=== PATIENT | male | born 1995 | race Caucasian/White ===

== ENCOUNTER 2019-06-21 03:12 | Emergency (ER) | payer OTHER ==
[~2019-06-21] VITALS: Ht 177.8 cm; Wt 91.6 kg
[2019-06-21 03:12] VITALS: BP_SYST 141
--- NOTE | 2019-06-21 03:12 | NUR ---
Patient to ER bed 5 to gown for evaluation. Side rails up. Report given to MADISON Gee and MADISON Alcantar.
--- NOTE | 2019-06-21 03:13 | NUR ---
Pt brought in by [facility] ambulance. Pt awake, alert, oriented x4. Pt ambulates with steady gait. Patient states that he was being booked into alf while in custody of [facility] and was given milk to drink. Pt states that he drank the milk, then states he had an allergic reaction to the milk, and feels "bubbles" in his stomach, pt also states the "Air is poisoning me" . 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 [facility] and thats why his heart rate is elevated. Pt denies chest pain, nausea, vomiting, diarrhea, shortness of breath, dizziness, hives, rash, blurred vision, or any other medical complaint at this time. Pt resting in ed bed, in custody with deputies bedside. Vital signs stable. no acute distress.
--- NOTE | 2019-06-21 03:15 | NUR ---
ER at bedside examining patient.
[2019-06-21 03:35] VITALS: BP_SYST 141
--- NOTE | 2019-06-21 03:35 | NUR ---
Patient given written and verbal discharge instructions and verbalizes understanding. ER MD discussed with patient the results and treatment provided. Patient in stable condition. ID arm band removed. Membership Secretary signed on behalf of patient, as patient refused. No RX given. Patient educated on pain management and to follow up with PMD. Pain Scale 0/10. No Distress, No additional complaints noted. Opportunity for questions provided and answered. Pt discharged with medical clearance/clear to book paperwork, in custody of MARIA Olsen.
== END 2019-06-21 03:35 ==
LOC: SED 03:12
DX: F15.10 Other stimulant abuse, uncomplicated (principal)
CPT/HCPCS: 99283